=== PATIENT | male | born 1955 | race Asian ===

== ENCOUNTER 2016-10-07 07:51 | Emergency (ER) | payer OTHER ==
[2016-10-07] MEDS ORDERED: ONDANSETRON ODT 4 MG TABLET TL STA (08:21)
[2016-10-07] MEDS ORDERED: DEXAMETHASONE 10 MG/ML VIAL PO STA (08:24)
[2016-10-07] MEDS ORDERED: guaiFENesin/CODEINE 5 ML UDC PO STA (08:24)
[2016-10-07] MEDS ORDERED: guaiFENesin/CODEINE 5 ML UDC ONE (08:31)
[2016-10-07] MEDS ORDERED: DEXAMETHASONE 10 MG/ML VIAL ONE (08:31)
[2016-10-07] MEDS ORDERED: ONDANSETRON ODT 4 MG TABLET ONE ×2 (08:31→08:33)
[2016-10-07] MEDS ORDERED: CHERRY SYRUP 10 ML UDC PO ONE (08:33)
== END 2016-10-07 08:58 | disposition home or self-care (01) ==
DX: J06.9 Acute upper respiratory infection, unspecified (principal); R11.2 Nausea with vomiting, unspecified; R19.7 Diarrhea, unspecified; E11.9 Type 2 diabetes mellitus without complications; Z79.4 Long term (current) use of insulin; I25.10 Atherosclerotic heart disease of native coronary artery without angina pectoris; Z79.02 Long term (current) use of antithrombotics/antiplatelets; Z79.82 Long term (current) use of aspirin
CPT/HCPCS: 99283; A9270; Q0162

== ENCOUNTER 2018-05-10 09:44 | Emergency (ER) | payer OTHER ==
[2018-05-10 10:21] LABS: BASOPHILS % (AUTO) 0.6 %; EOSINOPHILS # (AUTO) 0.3 10^3/uL (0.0-0.7); EOSINOPHILS % (AUTO) 4.3 %; HGB - HEMOGLOBIN 16.2 g/dL (14.0-18.0); LYMPHOCYTES # (AUTO) 1.2 10^3/uL (1.5-3.5); MEAN CORPUSCULAR HEMOGLOBIN 31.2 pg (27.0-31.0); MEAN CORPUSCULAR HGB CONC 34.8 g/dL (32.0-36.0); MEAN CORPUSCULAR VOLUME 89.6 fL (80.0-94.0); MEAN PLATELET VOLUME 8.2 fL (7.4-11.4); MONOCYTES # (AUTO) 0.7 10^3/uL (0.0-1.0); MONOCYTES % (AUTO) 10.5 %; NEUTROPHILS # (AUTO) 4.3 10^3/uL (1.5-6.6); NEUTROPHILS % (AUTO) 65.6 %; PLT - PLATELET COUNT 187 10^3/uL (130-450); RED BLOOD COUNT 5.18 10^6/uL (4.70-6.10); RED CELL DISTRIBUTION WIDTH 13.7 % (12.0-15.0); WHITE BLOOD COUNT 6.5 x10^3/uL (4.8-10.8)
[2018-05-10 10:33] LABS: ALBUMIN 3.9 g/dL (3.2-5.5); ALBUMIN/GLOBULIN RATIO 1.1 (1.0-2.2); BILIRUBIN,TOTAL 0.5 mg/dL (0.2-1.0); CALCIUM 8.8 mg/dL (8.5-10.3); TOTAL PROTEIN 7.5 g/dL (6.7-8.2)
[2018-05-10] MEDS ORDERED: ASPIRIN CHEW 81 MG TABLET PO STA (10:39)
[2018-05-10] MEDS ORDERED: NITROGLYCERIN 2% PASTE TOP STA (10:40)
--- NOTE | 2018-05-10 11:07 | XRAY Report ---
Reason: CP Procedure Date: 05/10/2018 Accession Number: [id number] / [id number] Procedure: XR - Chest 2 View X-Ray CPT Code: 94655 FULL RESULT: EXAM: CHEST RADIOGRAPHY EXAM DATE: 05/10/2018 10:43 AM. CLINICAL HISTORY: Chest pain. COMPARISON: CHEST 2 VIEW PA/LAT 10/04/2014 3:31 PM. TECHNIQUE: 2 views. FINDINGS: Lungs/Pleura: No focal opacities evident. No pleural effusion. No pneumothorax. Lung volumes are low on the frontal image, but appear within normal limits on the lateral image. Mediastinum: Heart and mediastinal contours are unremarkable. Other: No acute osseous abnormality. There are mild degenerative changes of the thoracic spine. IMPRESSION: No acute cardiopulmonary abnormality. RADIA
--- NOTE | 2018-05-10 12:59 | ED Physician Documentation ---
PD HPI CHEST PAIN - Stated complaint Stated Complaint: CHEST PX - Chief complaint Chief Complaint: Cardiac - History obtained from History obtained from: Patient - History of Present Illness Timing - onset: How many hours ago Timing - onset during: Other (at doctor's office) Timing - duration: Minutes (10) Timing - details: Abrupt onset, Now resolved Pain level max: 8 Pain level now: 0 (pt states been having anterior chest pain without radiation associated sometimes with nausea the past 6 months; lasting 10 minutes. States has a cardiology appointment on May 17. Pt also stated his blood pressure had been high and his PCP had increased his blood pressure pill dose.) Review of Systems Ten Systems: 10 systems reviewed and negative Constitutional: denies: Fever Cardiac: reports: Chest pain / pressure. denies: Palpitations, Pedal edema Respiratory: denies: Dyspnea, Cough GI: denies: Abdominal Pain, Nausea, Vomiting Neurologic: denies: Generalized weakness, Syncope PD PAST MEDICAL HISTORY - Past Medical History Cardiovascular: Hypertension, High cholesterol, Coronary artery disease Endocrine/Autoimmune: Type 2 diabetes : Kidney stones - Past Surgical History Ortho: Shoulder arthroplasty Cardiovascular: Coronary stent, Angioplasty - Present Medications Home Medications: Ambulatory Orders Medication Instructions Recorded Confirmed Insulin Glargine [Lantus] 32 unit SUBQ BID 10/04/14 10/04/14 metFORMIN [Glucophage] 500 mg PO BIDWM 10/04/14 10/07/16 Acetaminophen [Tylenol] 1 tab PO .FREQ 10/07/16 10/07/16 Clopidogrel [Plavix] 1 tab PO DAILY 10/07/16 10/07/16 Dexamethasone [Decadron] 4 mg PO DAILY #5 tablet 10/07/16 Escitalopram Oxalate [Lexapro] 1 tab PO DAILY 10/07/16 10/07/16 Ondansetron Odt [Zofran] 4 mg TL Q6H PRN #15 tablet 10/07/16 Oseltamivir [Tamiflu] 75 mg PO BID #10 capsule 10/07/16 RX: Aspirin [Aspir-Low] 1 tab PO DAILY 10/07/16 10/07/16 RX: Atorvastatin [Lipitor] 80 mg PO DAILY 10/07/16 10/07/16 RX: Losartan [Cozaar] 100 mg PO DAILY 10/07/16 10/07/16 RX: Metoprolol Succinate 1 tab PO DAILY 10/07/16 10/07/16 RX: amLODIPine [Norvasc] 1 tab PO DAILY 10/07/16 10/07/16 RX: raNITIdine [Zantac] 1 tab PO BID 10/07/16 10/07/16 Sildenafil Citrate [Viagra] 50 mg PO .FREQ 10/07/16 10/07/16 guaiFENesin/CODEINE [Robitussin AC] 10 ml PO Q6H PRN #240 ml 10/07/16 Nitroglycerin [Nitrostat] 0.4 mg SL Q5MIN PRN #20 tablet MDD 05/10/18 3 - Allergies Allergies/Adverse Reactions: Allergies Allergy/AdvReac Type Severity Reaction Status Date / Time No Known Drug Allergies Allergy Verified 05/10/18 10:00 - Living Situation Living Situation: reports: With family Living Arrangement: reports: At home - Social History Does the pt smoke?: No Smoking Status: Never smoker Does the pt drink ETOH?: No Does the pt have substance abuse?: No - Family History Family history: reports: DM - Immunizations Immunizations are current?: Yes PD ED PE NORMAL - Vitals Vital signs reviewed: Yes - General General: Alert and oriented X 3, No acute distress, Well developed/nourished - HEENT HEENT: Moist mucous membranes - Neck Neck: Supple, no meningeal sign - Cardiac Cardiac: RRR, No murmur - Respiratory Respiratory: No respiratory distress, Clear bilaterally - Abdomen Abdomen: Normal bowel sounds, Soft, Non tender, Non distended - Back Back: No CVA TTP - Derm Derm: Warm and dry - Extremities Extremities: No deformity - Neuro Neuro: Alert and oriented X 3 - Psych Psych: Normal mood, Normal affect Results - Vitals Vitals: Vital Signs - 24 hr 05/10/18 05/10/18 05/10/18 09:58 10:49 11:30 Temperature 36.4 C L Heart Rate 94 95 87 Respiratory 16 26 H 19 Rate Blood Pressure 157/117 H 156/102 H 157/99 H O2 Saturation 98 96 99 Oxygen O2 Source Room air - EKG (time done) 0954 Rate: Rate (enter#) Rhythm: NSR [place]: Normal Intervals: Normal NM QRS: Normal Ischemia: Normal ST segments Compare to prior EKG: Old EKG unavailable - Labs Labs: Laboratory Tests 05/10/18 05/10/1805/10/18 10:10 10:10 10:10 WBC 6.5 RBC 5.18 Hgb 16.2 Hct 46.4 MCV 89.6 MCH 31.2 H MCHC 34.8 RDW 13.7 Plt Count 187 MPV 8.2 Neut # (Auto) 4.3 Lymph # (Auto) 1.2 L [place] # (Auto) 0.7 Eos # (Auto) 0.3 Baso # (Auto) 0.0 Absolute Nucleated RBC 0.00 Nucleated RBC % 0.1 Sodium 138 Potassium 4.0 Chloride 106 Carbon Dioxide 25 Anion Gap 7.0 BUN 13 Creatinine 1.0 Estimated GFR (MDRD) 75 L Glucose 156 H Calcium 8.8 Total Bilirubin 0.5 AST 23 ALT 36 Alkaline Phosphatase 57 Troponin I < 0.04 Total Protein 7.5 Albumin 3.9 Globulin 3.6 Albumin/Globulin Ratio 1.1 Lipase 50 - Rads (name of study) cxr nad Radiology: See rad report PD MEDICAL DECISION MAKING - ED course Complexity details: reviewed results, re-evaluated patient, considered differential (ACS, NSTEMI, UA, uncontrolled HTN, P.E.), d/w patient, d/w family ( at the bedside throughout pt's stay and was included in the discussion.) - Sepsis Event Vital Signs: Vital Signs - 24 hr 05/10/18 05/10/18 05/10/18 09:58 10:49 11:30 Temperature 36.4 C L Heart Rate 94 95 87 Respiratory 16 26 H 19 Rate Blood Pressure 157/117 H 156/102 H 157/99 H O2 Saturation 98 96 99 Oxygen O2 Source Room air Departure - Departure Disposition: 07 Against Medical Advice Clinical Impression: Chest pain Qualifiers: Chest pain type: unspecified Qualified Code(s): R07.9 - Chest pain, unspecified Hypertension Qualifiers: Hypertension type: essential hypertension Qualified Code(s): I10 - Essential (primary) hypertension Condition: Good Instructions: Nitroglycerin Fast Act Dc, ED Chest Pain Atypical Unkn Cause Follow-Up: PAULETTE CRUZ MD [Primary Care Provider] - Tomorrow Prescriptions: Nitroglycerin [Nitrostat] 0.4 mg SL Q5MIN PRN #20 tablet MDD 3 PRN Reason: Chest Pain Comments: CALL YOUR MUSIC CATALOGUER FOR AN EARLIER APPOINTMENT. IF YOU ARE TAKING THE NITROGLYCERIN FOR YOUR CHEST PAIN, YOU SHOULD NOT BE TAKING VIAGRA. HAVE YOUR BLOOD PRESSURE AND MEDS BE REEVALUATED BY YOUR PCP TOMORROW. YOU SIGNED OUT AGAINST MEDICAL ADVICE TODAY, IF YOU ARE WORSE RETURN TO THE E.R. Discharge Date/Time: 05/10/18 13:23
[2018-05-10 13:23] VITALS: BP 150/98
== END 2018-05-10 13:23 | disposition left against medical advice (07) ==
LOC: ED 09:44
DX: R07.89 Other chest pain (principal); I10 Essential (primary) hypertension; I25.10 Atherosclerotic heart disease of native coronary artery without angina pectoris; Z95.5 Presence of coronary angioplasty implant and graft; E11.9 Type 2 diabetes mellitus without complications; Z79.4 Long term (current) use of insulin; Z79.02 Long term (current) use of antithrombotics/antiplatelets; Z79.82 Long term (current) use of aspirin; Z53.20 Procedure and treatment not carried out because of patient's decision for unspecified reasons
CPT/HCPCS: 36415; 71046; 80053; 83690; 84484; 85025; 93005; 99283; 99284; A9270